=== PATIENT | female | born 1950 | race Caucasian/White ===

== ENCOUNTER 2023-01-26 11:32 | Inpatient (IN) ==
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
--- NOTE | 2023-01-26 12:23 | XRay Report ---
INDICATION: weakness TECHNIQUE: AP portable semiupright chest x-ray COMPARISON: Previous examinations dated 01/16/2023, 12/16/2022, 12/09/2022 FINDINGS: Lungs:Bilateral, predominantly bibasilar pulmonary parenchymal infiltrates. Findings may be due to benign volume loss but pneumonia is possible. Clinical correlation and follow-up radiographs recommended Heart, vascular:No significant cardiomegaly. Pulmonary vascularity is normal. No pulmonary edema or pulmonary congestion Mediastinum, mode:No mediastinal widening. No hilar mass Pleura:No pleural fluid. No pleural-based mass or calcification Skeletal:Previous thoracolumbar spinal fusion. There are spinal cord stimulator leads in the mid thoracic spine. Previous anterior and posterior cervical spinal fusion. Previous right shoulder rotator cuff repair and Beth procedure. There is superior decentering of the right humeral head consistent with recurrent rotator cuff tear IMPRESSION: 1. Bilateral, bibasilar pulmonary parenchymal infiltrates consistent with pneumonia 2. Multiple orthopedic procedures Interpreted and Authenticated by: Dimitry Jamison 01/26/23
[2023-01-26 13:27] LABS: Basophils # (Auto) 0.05 K/mcL (0.00-0.30); Basophils % (Auto) 0.4 % (0.0-2.0); Eosinophils # (Auto) 0.26 K/mcL (0.00-0.70); Eosinophils % (Auto) 2.1 % (0.0-7.0); Hematocrit 39.2 % (34.1-44.9); Hemoglobin 12.5 g/dL (11.2-15.7); Lymphocytes # (Auto) 1.49 K/mcL (1.50-4.80); Lymphocytes % (Auto) 11.8 % (15.5-49.0); Mean Cell Volume 84.5 fL (80.0-100.0); Mean Corpuscular HGB Conc 31.9 g/dL (31.0-36.0); Mean Platelet Volume 10.9 fL (8.8-12.5); Monocytes # (Auto) 1.11 K/mcL (0.10-0.90); Monocytes % (Auto) 8.8 % (1.0-12.0); Neutrophils % (Auto) 76.4 % (38.0-78.0); Platelet Count 233 K/mcL (140-440); RBC 4.64 M/mcL (3.59-5.38); Red Cell Distribution Width 15.6 % (11.5-14.5); WBC 12.6 K/mcL (4.5-11.0)
[2023-01-26 13:30] LABS: Appearance,Urine HAZY (Clear); Bilirubin,Urine Negative (Negative); Color,Urine YELLOW; Culture Indicated,Urine No; Glucose,Urine (UA) Negative (Negative); Ketones,Urine 5 mg/dL (Negative); Leukocyte Esterase,Urine 25 /uL (Negative); Mucus,Urine FEW /hpf; Nitrate,Urine Negative (Negative); Protein,Urine 30 mg/dL (Negative); Specific Gravity,Urine 1.017 (1.000-1.035); Urine Blood Negative (Negative); Urine Hyaline Cast 13 /lph (0-2); Urine RBC < 1 /hpf (0-3); Urine Squamous Epithelial Cell 3 /hpf (0-4); Urine Transitional Epi Cells < 1 /hpf (0-2); Urine WBC 4 /hpf (0-4); Urobilinogen,Urine Negative
[2023-01-26 13:47] LABS: ALT/SGPT 39 U/L (<40); AST/SGOT 26 U/L (<32); Albumin 3.8 gm/dL (3.2-5.2); Albumin/Globulin Ratio 1.1 (1.0-2.3); Alkaline Phosphatase 89 U/L (39-117); Bilirubin,Total 0.5 mg/dL (0.1-1.0); Blood Urea Nitrogen 32 mg/dL (8-23); Calcium 9.5 mg/dL (8.6-10.4); Carbon Dioxide 23 mmol/L (22-30); Chloride 100 mmol/L (96-108); Globulin 3.5 gm/dL (2.2-3.7); Glomerular Filtration Rate 34; Glucose 155 mg/dL (70-105)
[2023-01-26] MEDS ORDERED: AZITHROMYCIN 500 MG in DEXTROSE 5% IN WATER 250 ML IV ONE (14:12)
[2023-01-26] MEDS ORDERED: CEFEPIME 2 GM VIAL IV ONE (14:12)
[2023-01-26] MEDS ORDERED: 0.9 % SODIUM CHLORIDE 1,000 ML IV ONE (14:12)
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
[2023-01-26] MEDS ORDERED: POTASSIUM CHLORIDE 40 MEQ in DEXTROSE 5% IN WATER 500 ML IV PRN (17:08)
[2023-01-26] MEDS ORDERED: MAGNESIUM SULFATE 2 GM/50 ML BAG IV PRN (17:08)
[2023-01-26] MEDS ORDERED: DEXTROSE 31 GM ORAL.SUSP PO PRN (17:08)
[2023-01-26] MEDS ORDERED: POLYETHYLENE GLYCOL 3350 17 GM PACKET PO PRN (17:08)
[2023-01-26] MEDS ORDERED: POTASSIUM CHLORIDE 20 MEQ TABLET PO PRN ×2 (17:08)
[2023-01-26] MEDS ORDERED: CEFEPIME 2 GM VIAL IV SCH (17:08)
[2023-01-26] MEDS ORDERED: DEXTROSE 50% 50 ML VIAL IV PRN (17:08)
[2023-01-26] MEDS ORDERED: ONDANSETRON 4 MG/2 ML VIAL IV PRN (17:08)
[2023-01-26] MEDS ORDERED: ACETAMINOPHEN 325 MG TABLET PO PRN (17:08)
[2023-01-26] MEDS ORDERED: SENNOSIDES 1 TABLET PO PRN (17:08)
[2023-01-26] MEDS ORDERED: AZITHROMYCIN 500 MG in DEXTROSE 5% IN WATER 250 ML IV SCH (17:08)
[2023-01-26] MEDS: 0.9 % SODIUM CHLORIDE 1,000 ML IV SCH (17:37)
[2023-01-26] MEDS: IPRATROPIUM/ALBUTEROL 3 ML AMPUL.NEB NEB SCH (18:25)
[2023-01-26] MEDS: BUDESONIDE 0.5 MG/2 ML AMPUL.NEB NEB SCH ×2 (18:25→19:52)
[2023-01-26] MEDS ORDERED: INSULIN LISPRO 1 UNIT/0.01 ML UNIT SQ ONE (18:50)
[2023-01-26] MEDS: INSULIN LISPRO 1 UNIT/0.01 ML UNIT SQ SCH ×2 (18:50→21:36)
[2023-01-26] MEDS: 0.9 % SODIUM CHLORIDE 10 ML SYRINGE IV SCH (21:36)
[2023-01-26] MEDS: DOCUSATE SODIUM 100 MG CAPSULE PO SCH (21:46)
[2023-01-26] MEDS: CEFEPIME 2 GM VIAL IV SCH (21:49)
[2023-01-27] MEDS: 0.9 % SODIUM CHLORIDE 10 ML SYRINGE IV SCH ×3 (05:11→21:13)
[2023-01-27] MEDS: IPRATROPIUM/ALBUTEROL 3 ML AMPUL.NEB NEB SCH ×4 (05:11→19:36)
[2023-01-27 06:59] LABS: Basophils # (Auto) 0.06 K/mcL (0.00-0.30); Basophils % (Auto) 0.7 % (0.0-2.0); Eosinophils # (Auto) 0.37 K/mcL (0.00-0.70); Eosinophils % (Auto) 4.2 % (0.0-7.0); Hematocrit 35.6 % (34.1-44.9); Mean Cell Volume 85.6 fL (80.0-100.0); Mean Corpuscular HGB Conc 30.9 g/dL (31.0-36.0); Mean Platelet Volume 10.5 fL (8.8-12.5); Monocytes # (Auto) 1.04 K/mcL (0.10-0.90); Monocytes % (Auto) 11.9 % (1.0-12.0); Neutrophils % (Auto) 66.9 % (38.0-78.0); Platelet Count 193 K/mcL (140-440); RBC 4.16 M/mcL (3.59-5.38); Red Cell Distribution Width 15.6 % (11.5-14.5); WBC 8.8 K/mcL (4.5-11.0)
[2023-01-27] MEDS ORDERED: NITROGLYCERIN 0.4 MG TAB.SUBL SL PRN (07:31)
[2023-01-27] MEDS: BUDESONIDE 0.5 MG/2 ML AMPUL.NEB NEB SCH ×2 (07:32→19:37)
--- NOTE | 2023-01-27 07:34 | Internal Med Progress Note ---
SUBJECTIVE Subjective Patient information: Note initiated : 01/27/23 at 7:28 am Service Date, if different from initiated Date: [] Patient: Trena Gaming a 72 y/o F admitted on 01/26/23 for Fever, increased oxygen, altered mental status. Chief Complaint: [] Interval history: History of present illness: Ms. Gaming is a 72 year old F Patient presents from her custodial for decreased level of consciousness and decreased oxygen saturations. She does have a history of chronic bronchitis as well as central sleep apnea and follows with pulmonology. She is on a 4 to 5 L of oxygen day and night. She has been in a custodial lately because her had a surgery recently - She has advanced Alzheimer's dementia. History is obtained from the family as patient is verbally unresponsive. The custodial center and because of decreased level of consciousness as well as hypoxia although I am not sure what level of oxygen support she was on, whether or not she was on her 4 L or less. As far as her baseline level of mentation patient has good days where she is animated and able to carry on a conversation with some assistance and other days where she is less. She ambulates with a walker. Per family she has had increasing cough lately. She was recently treated for UTI. Sounds like she had pneumonia back in September as well. Family says her Alzheimer's has been progressively worsening over the past year. In the ED she was found to have bilateral pneumonia and a mild leukocytosis. Minimally responsive. Chest x-ray with bilateral bibasilar infiltrates. Antibiotics and IV fluids started in the ED. 4/3 Little bit more alert today but still poor.. Responds "no" frequently to questions. Does not really follow commands. Makes eye contact. On 6 L OxyMask this morning weaning down to 3 now. Respiratory viral panel with rhinovirus. Leukocytosis improving. Renal function improving. Hypomagnesemia. Review of Systems: Pertinent positives as above. Denies headache/fever/chills/nausea/vomiting/chest or abdominal pain/diarrhea. PHYSICAL EXAM General: awake, No acute Distress Eyes/N/T: EOMI, no scleral icterus, Head/Neck: neck supple, full ROM, CV: RRR, No murmurs, Pulm: Decreased BS b/l and mild bibase rhonchi/rales, no wheezing, no respiratory distress Abd: soft, nontender, +BS x4 Ext: no clubbing/cyanosis/edema, nontender Neuro: more alert today, doesn't follow commands, makes eye contact, spontaneously moves extremities Psychiatric: Skin: warm/dry, normal color Constitutional Vitals: Vital Signs Temp Pulse Resp BP Pulse Ox O2 Del Method O2 Flow Rate 98.8 F 83 16 119/61 97 Oxymask 6 01/27/23 03:20 01/27/23 03:20 01/27/23 03:20 01/27/23 03:20 01/27/23 03:20 01/27/23 03:20 01/27/23 03:20 Period Temp Pulse Resp BP Sys/Quiros Pulse Ox O2 Del Method O2 Flow Rate Last 24 Hr 98.3 F-99.3 F 56-112 10-30 102-139/47-86 84-98 Oxymask-Room Air 6-6 Intake and Output 01/26/23 01/27/23 01/27/23 19:59 03:59 11:59 Intake Total 1250 0 Output Total 3 Balance 1250 -3 Weight 105.052 kg 105.778 kg Intake & Output: Intake & Output 01/26/23 01/27/23 01/27/23 19:59 03:59 11:59 Intake Total 1250 0 Output Total 3 Balance 1250 -3 Weight 105.052 kg 105.778 kg Intake: IV 1250 Sodium Chloride 0.9% 1,000 ml @ 1000 Wide Open IV BOLUS ONE Rx#: [id number] Zithromax 500 mg In Dextrose 5% 250 in Water 250 ml @ 250 mls/hr IV ONCE ONE Rx#:[id number] Oral 0 Output: # of times incontinent of urine 3 OBJ DATA Labs 01/27/23 05:41 01/27/23 05:41 Labs: Abnormal Lab Results 01/27/23 01/26/23 01/26/23 05:41 12:46 12:30 WBC Hgb 11.0 L MCHC 30.9 L RDW 15.6 H Lymph % (Auto) Lymph # (Auto) 1.40 L [place] # (Auto) 1.04 H Immature Gran # Absolute Neutrophils BUN Creatinine Glucose C-Reactive Protein 2.40 H Urine Appearance Hazy A Urine Protein 30 A Urine Ketones 5 A Ur Leukocyte Esterase 25 A Hyaline Casts 13 H Urine Mucus Few A 01/26/23 01/26/23 12:30 12:30 WBC 12.6 H Hgb MCHC RDW 15.6 H Lymph % (Auto) 11.8 L Lymph # (Auto) 1.49 L [place] # (Auto) 1.11 H Immature Gran # 0.06 H Absolute Neutrophils 9.67 H BUN 32 H Creatinine 1.5 H Glucose 155 H C-Reactive Protein Urine Appearance Urine Protein Urine Ketones Ur Leukocyte Esterase Hyaline Casts Urine Mucus Meds: Medications Acetaminophen (Acetaminophen 325 Mg Tablet) 650 mg PO Q6HP PRN; Protocol PRN Reason: Per Pain Protocol/Fever > 101 Albuterol/Ipratropium (Ipratropium/Albuterol 3 Ml Ampul.Neb) 3 ml NEB Q6HRT [facility] Last Admin: 01/27/23 05:11 Dose: Not Given Budesonide (Budesonide 0.5 Mg/2 Ml Ampul.Neb) 0.5 mg NEB Q12 [facility] Last Admin: 01/26/23 19:52 Dose: Not Given Cefepime HCl (Cefepime 2 Gm Vial) 2 gm IV Q12H [facility]; Protocol Last Admin: 01/26/23 21:49 Dose: 2 gm Dextrose (Dextrose 50% 50 Ml Vial) 0 ml IV UD PRN PRN Reason: Per Sliding Scale Diagnostic Test (Pha) (Accu-Chek 1 Each Strip) 1 each FS ACHS [facility] Last Admin: 01/26/23 21:36 Dose: 1 each Docusate Sodium (Docusate Sodium 100 Mg Capsule) 100 mg PO BID [facility] Last Admin: 01/26/23 21:46 Dose: 100 mg Enoxaparin Sodium (Enoxaparin 40 Mg/0.4 Ml Syringe) 40 mg SQ DAILY [facility] Glucose (Dextrose 31 Gm Oral.Susp) 15 gm PO PRN PRN PRN Reason: Hypoglycemia Potassium Chloride 40 meq/ (Dextrose) 520 mls @ 130 mls/hr IV UD PRN PRN Reason: Potassium < 3 Magnesium Sulfate (Magnesium Sulfate) 2 gm in 50 mls @ 50 mls/hr IV UD PRN PRN Reason: Magnesium </= 1.6 Sodium Chloride (Sodium Chloride 0.9%) 1,000 mls @ 75 mls/hr IV .[id number] [facility] Stop: 01/27/23 19:47 Last Admin: 01/26/23 17:37 Dose: 75 mls/hr Azithromycin 500 mg/ Dextrose 250 mls @ 250 mls/hr IV Q24H [facility]; Protocol Stop: 01/28/23 09:59 Insulin Human Lispro (Insulin Lispro 1 Unit/0.01 Ml Unit) 0 unit SQ ACHS [facility]; Protocol Last Admin: 01/26/23 21:36 Dose: Not Given Ondansetron HCl (Ondansetron 4 Mg/2 Ml Vial) 4 mg IV Q4HP PRN PRN Reason: Nausea And Vomiting Polyethylene Glycol (Polyethylene Glycol 3350 17 Gm Packet) 17 gm PO DAILYP PRN PRN Reason: Constipation Potassium Chloride (Potassium Chloride 20 Meq Tablet) 40 meq PO UD PRN PRN Reason: Potssium is 3-3.5 Potassium Chloride (Potassium Chloride 20 Meq Tablet) 40 meq PO UD PRN PRN Reason: Potassium < 3 Senna (Sennosides 1 Tablet) 2 tab PO DAILYP PRN PRN Reason: Constipation Sodium Chloride (0.9 % Sodium Chloride 10 Ml Syringe) 10 ml IV Q8 [facility] Last Admin: 01/27/23 05:11 Dose: Not Given A/P Narrative A/P Narrative: A: *PNA, b/l: concern for aspiration -RVP positive for rhinovirus. flu/covid/strep neg *Sepsis: 2/2 above -leukocytosis improving *Acute on chornic hypoxic respiratory failure: -on 6L oxymask *Encephalopathy: 2/2 above, mildly improved *COPD(on 4-5L@home) *Central Sleep Apnea: cpap *Advanced Alzheimer's Dementia: *SYDNEE on CKD IIIb: *DM2: *HTN/HLD: *Chronic pain: *Obesity: BMI 37 *GERD: *Generalized weakness/deconditioning: P: -Cefepime/azithromycin, pending BC/SC -IS/Acapella/home cpt vest, RT, nebs, cont home IH's -wean o2 as able -home cpap - eval -IVF -f/u renal fxn, monitor uop & i/o -hold ARB for sydnee -basal(decreased for poor po intake) and ssi -PT/OT -CM for placement -ppx: lovenox / home ppi Time Spent With Patient Time: Total time spent is greater than 50% in coordination of care (as documented) at patient's floor/unit and/or counseling patient: Subsequent: Total time with patient: 50 - 65 Minutes QUALITY Stroke Symptom Onset Unknown: No VTE Deep Vein Thrombosis/Pulmonary Embolism Present on Admission: No
[2023-01-27 08:10] LABS: ALT/SGPT 33 U/L (<40); AST/SGOT 24 U/L (<32); Albumin 3.1 gm/dL (3.2-5.2); Alkaline Phosphatase 74 U/L (39-117); Bilirubin,Direct < 0.2 mg/dL (0-0.3); Bilirubin,Total 0.7 mg/dL (0.1-1.0); Blood Urea Nitrogen 24 mg/dL (8-23); Calcium 8.8 mg/dL (8.6-10.4); Carbon Dioxide 24 mmol/L (22-30); Chloride 106 mmol/L (96-108); Globulin 3.1 gm/dL (2.2-3.7); Glomerular Filtration Rate 56; Glucose 143 mg/dL (70-105); Lactate Dehydrogenase 181 U/L (135-225); Phosphorous 2.6 mg/dL (2.5-4.5); Triglycerides 203 mg/dL (<150)
[2023-01-27] MEDS: 0.9 % SODIUM CHLORIDE 1,000 ML IV SCH (08:10)
[2023-01-27] MEDS: ENOXAPARIN 40 MG/0.4 ML SYRINGE SQ SCH (08:21)
[2023-01-27] MEDS: PREGABALIN 150 MG CAPSULE PO SCH ×3 (08:22→21:13)
[2023-01-27] MEDS: DOCUSATE SODIUM 100 MG CAPSULE PO SCH ×2 (08:22→21:13)
[2023-01-27] MEDS: INSULIN LISPRO 1 UNIT/0.01 ML UNIT SQ SCH ×5 (08:22→21:12)
[2023-01-27] MEDS: OMEPRAZOLE 20 MG CAPSULE PO SCH ×2 (08:23→09:31)
[2023-01-27] MEDS: CEFEPIME 2 GM VIAL IV SCH ×2 (08:28→21:13)
[2023-01-27] MEDS: TIMOLOL 0.5% OPHTH DROPS BOTTLE 5ML OU SCH (08:36)
[2023-01-27] MEDS: AZITHROMYCIN 500 MG in DEXTROSE 5% IN WATER 250 ML IV SCH (08:36)
--- NOTE | 2023-01-27 09:28 | EKG ---
[facility] Test Date: 2023-01-26 Pat Name: Trena Gaming Department: ED Room: Gender: Female Project Management Specialist: ROSITA : 1950 Requested By: Eryn Loyola Order Number: [id number] Reading MD: Dimitry Wolfe M.D. Measurements Intervals [place] Rate: 107 P: 25 OR: 195 QRS: 21 QRSD: 96 T: -2 QT: 359 QTc: 478 Interpretive Statements Sinus tachycardia Borderline T abnormalities, diffuse leads Electronically Signed On 01-27-2023 9:28:37 PDT by Dimitry Wolfe M.D. /store/[email or web address]/[id number]
[2023-01-27] MEDS ORDERED: OLANZapine 10 MG VIAL IM ONE (16:00)
[2023-01-27] MEDS ORDERED: NON FORMULARY MEDICATION 1 DOSE MISCELL (Methadone 10 mg tablet) PO SCH (21:00)
[2023-01-27] MEDS: INSULIN GLARGINE, HUMAN 1 UNIT/0.01 ML SQ SCH (21:12)
[2023-01-27] MEDS: LATANOPROST OPHTH DROPS 2.5ML BOTTLE OU SCH (21:13)
[2023-01-27] MEDS: SIMVASTATIN 40 MG TABLET PO SCH (21:13)
[2023-01-27] MEDS: DULoxetine 30 MG CAPSULE PO SCH (21:13)
[2023-01-27] MEDS: risperiDONE 1 MG TABLET PO SCH (21:13)
[2023-01-28] MEDS: IPRATROPIUM/ALBUTEROL 3 ML AMPUL.NEB NEB SCH ×2 (00:21→07:52)
[2023-01-28] MEDS: 0.9 % SODIUM CHLORIDE 10 ML SYRINGE IV SCH ×3 (06:48→20:42)
[2023-01-28 07:13] LABS: ALT/SGPT 46 U/L (<40); AST/SGOT 36 U/L (<32); Albumin 3.4 gm/dL (3.2-5.2); Albumin/Globulin Ratio 0.9 (1.0-2.3); Alkaline Phosphatase 82 U/L (39-117); Bilirubin,Direct < 0.2 mg/dL (0-0.3); Bilirubin,Total 0.8 mg/dL (0.1-1.0); Blood Urea Nitrogen 14 mg/dL (8-23); Calcium 9.4 mg/dL (8.6-10.4); Carbon Dioxide 26 mmol/L (22-30); Chloride 101 mmol/L (96-108); Globulin 3.7 gm/dL (2.2-3.7); Glomerular Filtration Rate 86; Glucose 165 mg/dL (70-105); Lactate Dehydrogenase 237 U/L (135-225); Phosphorous 1.5 mg/dL (2.5-4.5); Triglycerides 208 mg/dL (<150)
--- NOTE | 2023-01-28 07:42 | Internal Med Progress Note ---
SUBJECTIVE Subjective Patient information: Note initiated : 01/28/23 at 7:40 am Service Date, if different from initiated Date: [] Patient: Trena Gaming a 72 y/o F admitted on 01/26/23 for Fever, increased oxygen, altered mental status. Chief Complaint: [] Interval history: History of present illness: Ms. Gaming is a 72 year old F Patient presents from her [facility] for decreased level of consciousness and decreased oxygen saturations. She does have a history of chronic bronchitis as well as central sleep apnea and follows with pulmonology. She is on a 4 to 5 L of oxygen day and night. She has been in a mcc lately because her had a surgery recently - She has advanced Alzheimer's dementia. History is obtained from the family as patient is verbally unresponsive. The [facility] center and because of decreased level of consciousness as well as hypoxia although I am not sure what level of oxygen support she was on, whether or not she was on her 4 L or less. As far as her baseline level of mentation patient has good days where she is animated and able to carry on a conversation with some assistance and other days where she is less. She ambulates with a walker. Per family she has had increasing cough lately. She was recently treated for UTI. Sounds like she had pneumonia back in September as well. Family says her Alzheimer's has been progressively worsening over the past year. In the ED she was found to have bilateral pneumonia and a mild leukocytosis. Minimally responsive. Chest x-ray with bilateral bibasilar infiltrates. Antibiotics and IV fluids started in the ED. 4/3 Little bit more alert today but still poor.. Responds "no" frequently to questions. Does not really follow commands. Makes eye contact. On 6 L OxyMask this morning weaning down to 3 now. Respiratory viral panel with rhinovirus. Leukocytosis improving. Renal function improving. Hypomagnesemia. 4/4 Patient became agitated and impulsive yesterday evening. Finally calm down. Refusing medications this morning. Patient on several liters of oxygen. Renal function improved. Phos low. Review of Systems: Pertinent positives as above. Denies headache/fever/chills/nausea/vomiting/chest or abdominal pain/diarrhea. PHYSICAL EXAM General: awake, No acute Distress Eyes/N/T: EOMI, no scleral icterus, Head/Neck: neck supple, full ROM, CV: RRR, No murmurs, Pulm: Decreased BS b/l and mild bibase rhonchi/rales clear anteriorly, no wheezing, no respiratory distress Abd: soft, nontender, +BS x4 Ext: no clubbing/cyanosis/edema, nontender Neuro: more alert today, doesn't follow commands, makes eye contact, sponta neously moves extremities Psychiatric: Skin: warm/dry, normal color Constitutional Vitals: Vital Signs Temp Pulse Resp BP Pulse Ox O2 Del Method O2 Flow Rate 98.3 F 80 16 160/84 94 Nasal Cannula 4 01/28/23 04:00 01/28/23 04:00 01/28/23 04:00 01/28/23 04:00 01/28/23 04:00 01/28/23 04:00 01/28/23 04:00 Period Temp Pulse Resp BP Sys/Quiros Pulse Ox O2 Del Method O2 Flow Rate Last 24 Hr 97.6 F-99.0 F 75-96 12-18 128-164/75-94 93-99 Nasal Cannula- Room Air 3-6 Intake and Output 01/27/23 01/28/23 01/28/23 19:59 03:59 11:59 Intake Total 50 1000 Output Total 1 500 Balance 50 999 -500 Weight 104.825 kg Intake & Output: Intake & Output 01/27/23 01/28/23 01/28/23 19:59 03:59 11:59 Intake Total 50 1000 Output Total 1 500 Balance 50 999 -500 Weight 104.825 kg Intake: IV 50 1000 Sodium Chloride 0.9% 1,000 ml @ 1000 75 mls/hr IV .[id number] [facility] Rx#: [id number] Output: Void Amount 500 # of times incontinent of urine 1 Other: Meal Lunch Percent of Meal Consumed 25% Feeding Ability Needs Supervision Urine Appearance Clear Urine Color Yellow Stool Size Large Stool Color Brown Stool Consistency Soft # of times incontinent of 1 Bowels OBJ DATA Labs 01/27/23 05:41 01/28/23 05:51 Labs: Abnormal Lab Results 01/28/23 01/27/23 01/27/23 05:51 05:41 05:41 WBC Hgb 11.0 L MCHC 30.9 L RDW 15.6 H Lymph % (Auto) Lymph # (Auto) 1.40 L Kerr # (Auto) 1.04 H Immature Gran # Absolute Neutrophils BUN 24 H Creatinine Glucose 165 H 143 H Phosphorus 1.5 L Magnesium 1.5 L AST 36 H ALT 46 H Lactate Dehydrogenase 237 H C-Reactive Protein Albumin 3.1 L Albumin/Globulin Ratio 0.9 L Triglycerides 208 H 203 H Urine Appearance Urine Protein Urine Ketones Ur Leukocyte Esterase Hyaline Casts Urine Mucus 01/26/23 01/26/23 01/26/23 12:46 12:30 12:30 WBC Hgb MCHC RDW Lymph % (Auto) Lymph # (Auto) Kerr # (Auto) Immature Gran # Absolute Neutrophils BUN 32 H Creatinine 1.5 H Glucose 155 H Phosphorus Magnesium AST ALT Lactate Dehydrogenase C-Reactive Protein 2.40 H Albumin Albumin/Globulin Ratio Triglycerides Urine Appearance Hazy A Urine Protein 30 A Urine Ketones 5 A Ur Leukocyte Esterase 25 A Hyaline Casts 13 H Urine Mucus Few A 01/26/23 12:30 WBC 12.6 H Hgb MCHC RDW 15.6 H Lymph % (Auto) 11.8 L Lymph # (Auto) 1.49 L Kerr # (Auto) 1.11 H Immature Gran # 0.06 H Absolute Neutrophils 9.67 H BUN Creatinine Glucose Phosphorus Magnesium AST ALT Lactate Dehydrogenase C-Reactive Protein Albumin Albumin/Globulin Ratio Triglycerides Urine Appearance Urine Protein Urine Ketones Ur Leukocyte Esterase Hyaline Casts Urine Mucus Meds: Medications Acetaminophen (Acetaminophen 325 Mg Tablet) 650 mg PO Q6HP PRN; Protocol PRN Reason: Per Pain Protocol/Fever > 101 Albuterol/Ipratropium (Ipratropium/Albuterol 3 Ml Ampul.Neb) 3 ml NEB Q6HRT [facility] Last Admin: 01/28/23 00:21 Dose: Not Given Budesonide (Budesonide 0.5 Mg/2 Ml Ampul.Neb) 0.5 mg NEB Q12 [facility]ARA Last Admin: 01/27/23 19:37 Dose: 0.5 mg Cefepime HCl (Cefepime 2 Gm Vial) 2 gm IV Q12H [facility]ARA; Protocol Last Admin: 01/27/23 21:13 Dose: 2 gm Dextrose (Dextrose 50% 50 Ml Vial) 0 ml IV UD PRN PRN Reason: Per Sliding Scale Diagnostic Test (Pha) (Accu-Chek 1 Each Strip) 1 each FS ACHS [facility] Last Admin: 01/27/23 21:12 Dose: 1 each Docusate Sodium (Docusate Sodium 100 Mg Capsule) 100 mg PO BID [facility] Last Admin: 01/27/23 21:13 Dose: Not Given Duloxetine HCl (Duloxetine 30 Mg Capsule) 90 mg PO QHS [facility] Last Admin: 01/27/23 21:13 Dose: Not Given Enoxaparin Sodium (Enoxaparin 40 Mg/0.4 Ml Syringe) 40 mg SQ DAILY [facility] Last Admin: 01/27/23 08:21 Dose: 40 mg Glucose (Dextrose 31 Gm Oral.Susp) 15 gm PO PRN PRN PRN Reason: Hypoglycemia Potassium Chloride 40 meq/ (Dextrose) 520 mls @ 130 mls/hr IV UD PRN PRN Reason: Potassium < 3 Magnesium Sulfate (Magnesium Sulfate) 2 gm in 50 mls @ 50 mls/hr IV UD PRN PRN Reason: Magnesium </= 1.6 Last Infusion: 01/27/23 14:37 Dose: Infused Azithromycin 500 mg/ Dextrose 250 mls @ 250 mls/hr IV Q24H [facility]; Protocol Stop: 01/28/23 09:59 Last Infusion: 01/27/23 11:26 Dose: Infused Insulin Glargine (Insulin Glargine, Human 1 Unit/0.01 Ml) 20 unit SQ [facility] Last Admin: 01/27/23 21:12 Dose: 20 unit Insulin Human Lispro (Insulin Lispro 1 Unit/0.01 Ml Unit) 0 unit SQ [facility]; Protocol Last Admin: 01/27/23 21:12 Dose: 4 units Latanoprost (Latanoprost Ophth Drops 2.5ml Bottle) 1 gtt OU QPM [facility] Last Admin: 01/27/23 21:13 Dose: Not Given Nitroglycerin (Nitroglycerin 0.4 Mg Tab.Subl) 0.4 mg SL Q5M PRN PRN Reason: Chest Pain Omeprazole (Omeprazole 20 Mg Capsule) 40 mg PO ACB [facility] Last Admin: 01/27/23 09:31 Dose: Not Given Ondansetron HCl (Ondansetron 4 Mg/2 Ml Vial) 4 mg IV Q4HP PRN PRN Reason: Nausea And Vomiting Polyethylene Glycol (Polyethylene Glycol 3350 17 Gm Packet) 17 gm PO DAILYP PRN PRN Reason: Constipation Potassium Chloride (Potassium Chloride 20 Meq Tablet) 40 meq PO UD PRN PRN Reason: Potssium is 3-3.5 Potassium Chloride (Potassium Chloride 20 Meq Tablet) 40 meq PO UD PRN PRN Reason: Potassium < 3 Pregabalin (Pregabalin 150 Mg Capsule) 150 mg PO BID [facility] Last Admin: 01/27/23 21:13 Dose: Not Given Risperidone (Risperidone 1 Mg Tablet) 1 mg PO QHS [facility] Last Admin: 01/27/23 21:13 Dose: Not Given Senna (Sennosides 1 Tablet) 2 tab PO DAILYP PRN PRN Reason: Constipation Simvastatin (Simvastatin 40 Mg Tablet) 40 mg PO QHS [facility] Last Admin: 01/27/23 21:13 Dose: Not Given Sodium Chloride (0.9 % Sodium Chloride 10 Ml Syringe) 10 ml IV Q8 [facility] Last Admin: 01/28/23 06:48 Dose: Not Given Timolol Maleate (Timolol 0.5% Ophth Drops Bottle 5ml) 1 gtt OU QDAY [facility] Last Admin: 01/27/23 08:36 Dose: Not Given A/P Narrative A/P Narrative: A: *PNA, b/l: concern for aspiration -RVP positive for rhinovirus. flu/covid/strep neg *Sepsis: 2/2 above -leukocytosis improved *Acute on chornic hypoxic respiratory failure: -down to 2-4L NC *Encephalopathy, acute on chronic: 2/2 above, mildly improved *Advanced Alzheimer's Dementia: *Hypomagnesemia/hypophosphatemia: *COPD(on 4-5L@home) *Central Sleep Apnea: cpap *SYDNEE on CKD IIIb: improved *DM2: *HTN/HLD: *Chronic pain: *Obesity: BMI 37 *GERD: *Generalized weakness/deconditioning: P: -Cefepime/azithromycin, pending BC/SC -IS/Acapella/home cpt vest, RT, nebs, cont home IH's -wean o2 as able -home cpap -ST eval -IVF d/c -Monitor electrolytes and replace. -f/u renal fxn, monitor uop & i/o -hold ARB for sydnee -basal(decreased for poor po intake) and ssi -PT/OT -CM for placement -ppx: lovenox / home ppi Time Spent With Patient Time: Total time spent is greater than 50% in coordination of care (as documented) at patient's floor/unit and/or counseling patient: Subsequent: Total time with patient: 50 - 65 Minutes QUALITY Stroke Symptom Onset Unknown: No VTE Deep Vein Thrombosis/Pulmonary Embolism Present on Admission: No
[2023-01-28] MEDS: BUDESONIDE 0.5 MG/2 ML AMPUL.NEB NEB SCH (07:53)
[2023-01-28] MEDS: INSULIN LISPRO 1 UNIT/0.01 ML UNIT SQ SCH ×4 (08:22→20:54)
[2023-01-28] MEDS: CEFEPIME 2 GM VIAL IV SCH ×2 (08:22→20:42)
[2023-01-28] MEDS: ENOXAPARIN 40 MG/0.4 ML SYRINGE SQ SCH (08:23)
[2023-01-28] MEDS: AZITHROMYCIN 500 MG in DEXTROSE 5% IN WATER 250 ML IV SCH (08:23)
[2023-01-28] MEDS ORDERED: MAGNESIUM SULFATE 8.12 MEQ in DEXTROSE 5% IN WATER 50 ML IV ONE (09:25)
[2023-01-28] MEDS ORDERED: IPRATROPIUM/ALBUTEROL 3 ML AMPUL.NEB NEB PRN (09:56)
--- NOTE | 2023-01-28 11:36 | Discharge Summary ---
Discharge Provider Provider IMPORTANT FOLLOW-UP INFORMATION FOR PCP: Patient information: Note initiated : 01/28/23 at 11:34 am Service Date, if different from initiated Date: [] Patient: Trena Gaming a 72 y/o F admitted on 01/26/23 for Fever, increased oxygen, altered mental status. Chief Complaint: [] Date of admission: 01/26/23 16:59 Discharge date: 01/30/23 Primary care physician: Jigar Salinas MD Consults: 01/26/23 Consult to Physician [CONS] Stat Comment: Consulting Provider: Maynor Grossman Reason For Exam: Physician to Consult 01/28/23 08:25 Consult to Physician [CONS] Routine Comment: snf referral Consulting Provider: [facility] Reason For Exam: Physician to Consult 01/28/23 10:43 Consult to Physician [CONS] Routine Comment: Consulting Provider: [facility] Reason For Exam: Physician to Consult COURSE Hospital Course Hospital course: History of present illness: Ms. Gaming is a 72 year old F Patient presents from her correction for decreased level of consciousness and decreased oxygen saturations. She does have a history of chronic bronchitis as well as central sleep apnea and follows with pulmonology. She is on a 4 to 5 L of oxygen day and night. She has been in a correction lately because her had a surgery recently - She has advanced Alzheimer's dementia. History is obtained from the family as patient is verbally unresponsive. The correction center and because of decreased level of consciousness as well as hypoxia although I am not sure what level of oxygen support she was on, whether or not she was on her 4 L or less. As far as her baseline level of mentation patient has good days where she is animated and able to carry on a conversation with some assistance and other days where she is less. She ambulates with a walker. Per family she has had increasing cough lately. She was recently treated for UTI. Sounds like she had pneumonia back in September as well. Family says her Alzheimer's has been progressively worsening over the past year. In the ED she was found to have bilateral pneumonia and a mild leukocytosis. Minimally responsive. Chest x-ray with bilateral bibasilar infiltrates. Antibiotics and IV fluids started in the ED. 4/3 Little bit more alert today but still poor.. Responds "no" frequently to questions. Does not really follow commands. Makes eye contact. On 6 L OxyMask this morning weaning down to 3 now. Respiratory viral panel with rhinovirus. Leukocytosis improving. Renal function improving. Hypomagnesemia. 01/28 Patient became agitated and impulsive yesterday evening. Finally calm down. Refusing medications this morning. Patient on several liters of oxygen. Renal function improved. Phos low. 5 More alert and communicative today. Patient does answer yes to some questions. Follows commands. Feels better today. Seen by telemetry psych yesterday. 01/30 No overnight event or new complaints. Patient seems to be doing pretty well this morning she has occasional headache and mild cough. Speech therapy eval pending. Given comorbidities specifically advanced dementia patient high risk for readmission A: *PNA, b/l: concern for aspiration -RVP positive for rhinovirus. flu/covid/strep neg *Sepsis: 2/2 above *Acute on chornic hypoxic respiratory failure: *Encephalopathy, acute on chronic: 2/2 above, mildly improved *Advanced Alzheimer's Dementia: *Hypomagnesemia/hypophosphatemia: *COPD(on 4-5L@home) *Central Sleep Apnea: cpap *SYDNEE on CKD IIIb: improved *DM2: *HTN/HLD: *Chronic pain: *Obesity: BMI 37 *GERD: *Generalized weakness/deconditioning: P: -Abx -ST eval -Per telepsych >stop Risperidone -For SNF facility>>Start home Lantus at 20 units nightly and titrate back up to home dose of 80 nightly as needed. Discharge diagnosis: Pneumonia concern for aspiration. Sepsis acute on chronic hypoxic respite Secondary discharge diagnosis: Encephalopathy advanced Alzheimer's dementia electrolyte dispense imbalance COPD Central sleep apnea acute on chronic kidney disease diabetes hypertension chronic pain obesity GERD generalized weakness Time Spent with Patient Time attestation: Total time spent providing and/or coordinating discharge services: Time spent: Greater than 30 minutes EXAM Constitutional Vitals: Temp Pulse Resp BP Pulse Ox O2 Del Method O2 Flow Rate 98.3 F 80 14 160/84 94 Nasal Cannula 2 01/28/23 04:00 01/28/23 04:00 01/28/23 08:00 01/28/23 04:00 01/28/23 04:00 01/28/23 04:00 01/28/23 07:55 Discharge Data Data Completed and Pending Labs on day of discharge: Labs from last 24 hours 01/28/23 05:51 Sodium 140 Potassium 4.3 Chloride 101 Carbon Dioxide 26 Anion Gap 13.0 BUN 14 Creatinine 0.7 GFR Calculation 86 Glucose 165 H Uric Acid 7.0 Calcium 9.4 Phosphorus 1.5 L Magnesium 1.6 Total Bilirubin 0.8 Direct Bilirubin < 0.2 GGT 27 AST 36 H ALT 46 H Alkaline Phosphatase 82 Lactate Dehydrogenase 237 H Total Protein 7.1 Albumin 3.4 Globulin 3.7 Albumin/Globulin Ratio 0.9 L Triglycerides 208 H Preliminary micro results at discharge 01/26/23 11:43 Blood Culture - Preliminary Blood 01/26/23 11:35 Blood Culture - Preliminary Blood Discharge Plan Patient/Caregiver Discharge Instructions Activity: increase activity as tolerated Diet: Consistent Carbohydrate Activity Restrictions/Additional Instructions: Start home Lantus at 20 units nightly and titrate back up to home dose of 80 nightly as needed. Prescriptions: Continued (DME) 20 inch wheel chair See Rx Instructions .Route .MEDSUPPLY Qty: 1 0RF Rx Instructions: use daily for mobility simvastatin 40 mg tablet 40 mg PO QHS Qty: 90 3RF cholecalciferol (vitamin D3) 5,000 unit capsule 5,000 unit PO DAILY L.acid-L.casei-B.bif-B.concetta-FOS 2 tab PO QAM Patient Comments: 2 capsules PO BID; Rx Instructions: 2 capsules q am; pen needle, diabetic miscellaneous latanoprost 0.005 % drops 1 drp OPHTHALMIC QPM Patient Comments: Left eye Rx Instructions: 1 gtt to left eye q.hs (DME) True Metrix Glucose Test Strip strip See Dose Instructions .ROUTE .MEDSUPPLY Qty: 10 Rx Instructions: As directed alpha lipoic acid 600 mg capsule 1,200 mg PO QHS insulin lispro protamine-lispro 100 unit/mL (75-25) subcutaneous pen 100 unit/mL (75-25) insulin pen See Rx Instructions SUB-Q QDAY Patient Comments: sliding scale (5 units + sliding scale SUB-Q QDAY; Rx Instructions: sliding scale (5 units + sliding scale SUB-Q QDAY; Lantus Solostar U-100 Insulin 100 unit/mL (3 mL) insulin pen 80 unit SUB-Q QHS folic acid 1 mg tablet 1 mg PO QDAY metformin 500 mg tablet extended release 24 hr 500 mg PO QDAY timolol 0.5 % drops 1 drp ophthalmic (eye) QDAY duloxetine 30 mg capsule,delayed release(DR/EC) 90 mg PO QHS omeprazole 40 mg capsule,delayed release(DR/EC) 40 mg PO QDAY nitroglycerin 0.4 mg tablet, sublingual 0.4 mg sublingual Q5M PRN (Reason: Chest Pain) Rx Instructions: do not exceed 3 doses per episode oxycodone 10 mg tablet 10 mg PO Q4-6HP PRN (Reason: pain) multivitamin Tablet 1 tab PO QAM loratadine [Allergy Relief (loratadine)] 10 mg tablet 10 mg PO QDAY PRN (Reason: Allergy Symptoms) (DME) ASV and supplies Qty: 1 0RF Dose Instruction: As directed Rx Instructions: ASV settings of minimum EPAP at 8cm of water pressure,maximum EPAP of 15cm of water pressure,minimum pressure support of 4cm of water pressure and maximum pressure support of 15 cm of water pressure. ascorbate calcium (vitamin C) 500 mg tablet 1,000 mg PO DAILY Rx Instructions: takes 2 "gummies" daily Ozempic 0.25 mg or 0.5 mg(2 mg/1.5 mL) pen injector 1 mg SUBCUT WEEKLY Rx Instructions: every Friday pregabalin 150 mg Capsule 150 mg PO BID losartan [Cozaar] 25 mg tablet 50 mg PO QHS Rx Instructions: decreased dose 09/24/22 urea 40 % cream 1 applic topical QDAY methadone 10 mg tablet 10 mg PO Q12H Rx Instructions: 2 tabs am, 1 tab pm, 1 tab HS Discontinued risperidone 1 mg tablet 1 mg PO QHS Qty: 30 1RF Follow Up Plan Follow up with: Jigar Salinas MD [Primary Care Provider] - Patient Disposition: Xfer SNF Prognosis: Undetermined Rehab Potential: Fair I certify that the patient requires SNF services: Yes Overall status at discharge: patient is progressing back to baseline Discharge Orders: Discharge Order (Routine); Ordered 01/30/23 Ordered By: Maynor Grossman [facility] VTE Deep Vein Thrombosis/Pulmonary Embolism Present on Admission: No
[2023-01-28] MEDS: PREGABALIN 150 MG CAPSULE PO SCH ×2 (12:10→20:54)
[2023-01-28] MEDS: OMEPRAZOLE 20 MG CAPSULE PO SCH (12:10)
[2023-01-28] MEDS: DOCUSATE SODIUM 100 MG CAPSULE PO SCH ×2 (12:10→20:37)
[2023-01-28] MEDS: TIMOLOL 0.5% OPHTH DROPS BOTTLE 5ML OU SCH (12:11)
[2023-01-28] MEDS: NEUTRA PHOS 1 PACKET PO SCH ×2 (12:32→20:55)
[2023-01-28] MEDS: PHOSPHORUS 250 MG TABLET PO SCH ×2 (12:32→20:55)
[2023-01-28] MEDS ORDERED: OLANZapine 5 MG TABLET PO PRN (16:09)
[2023-01-28] MEDS: DULoxetine 30 MG CAPSULE PO SCH (20:53)
[2023-01-28] MEDS: QUEtiapine 25 MG TABLET PO SCH (20:54)
[2023-01-28] MEDS: LATANOPROST OPHTH DROPS 2.5ML BOTTLE OU SCH (20:54)
[2023-01-28] MEDS: SIMVASTATIN 40 MG TABLET PO SCH (20:54)
[2023-01-28] MEDS: risperiDONE 1 MG TABLET PO SCH (20:54)
[2023-01-28] MEDS: INSULIN GLARGINE, HUMAN 1 UNIT/0.01 ML SQ SCH (20:54)
[2023-01-28] MEDS ORDERED: MELATONIN 3 MG TABLET PO SCH (21:00)
--- NOTE | 2023-01-28 22:12 | Behavioral Health Consult ---
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 hysterectomy Hx of fusion of cervical spine 2002 C5-C6 Hx of tonsillectomy 2014 S/P insertion of spinal cord stimulator [employer] Wavewriter implantable pulse generator with 4 Octad leads- lumbar spine S/P tendon repair 05/2013 Right foot tendon repair possibly due to Cipro or chemotherapy Family History Father Arthritis High blood pressure Bladder cancer Mother Arthritis Cervical cancer Diabetes High blood pressure Ovarian cancer Family/Other Dementia Paternal Uncle Family history of heart disease Uterine cancer Sibling Sister Migraine Blood disorder Daughter Increased heart rate Exertional increased heart rate Social History marital status: education level: college occupational status: retired and disabled other: Children-2 physical activity: none smoking status: Former smoker quit date: 10/27/95 pack-years: 5 smoking status stop date: 10/27/95 alcohol intake frequency: does not drink substance use type: does not use seatbelt use: always MEDS/ALLERGIES Home Medications and Allergies Home Medications Medication Instructions Recorded Confirmed Type L.acid-L.casei-B.bif-B.concetta-FOS 2 tab PO QAM 11/26/18 01/27/23 History [Probiotic Blend] alpha lipoic acid 600 mg capsule 1,200 mg PO QHS 11/26/18 01/27/23 History blood sugar diagnostic (True #10 ea 11/26/18 12/31/22 History Metrix Glucose Test Strip) cholecalciferol (vitamin D3) 125 5,000 unit PO DAILY 11/26/18 01/27/23 History mcg (5,000 unit) capsule latanoprost 0.005 % eye drops 1 drp ophthalmic (eye) QPM 11/26/18 01/27/23 History pen needle, diabetic [BD miscellaneous 11/26/18 12/31/22 History Ultra-Fine Mini Pen Needle] ASV and supplies #1 ea 06/30/19 12/31/22 Rx insulin lispro protamine-lispro See Rx Instructions subcut QDAY 11/23/19 01/27/23 History 100 unit/mL (75-25) subcutaneous pen (Humalog Mix 75-25 KwikPen) multivitamin 1 tab PO QAM 08/01/21 01/27/23 History folic acid 1 mg tablet 1 mg PO QDAY 11/01/21 01/27/23 History loratadine 10 mg tablet (Allergy 10 mg PO QDAY PRN Allergy Symptoms 11/01/21 01/27/23 History Relief (loratadine)) insulin glargine 100 unit/mL (3 80 unit subcut QHS 02/01/22 01/27/23 History mL) subcutaneous pen (Lantus Solostar U-100 Insulin) metformin 500 mg tablet,extended 500 mg PO QDAY 02/01/22 01/27/23 History release 24 hr urea 40 % topical cream 1 applic topical QDAY 06/19/22 01/27/23 History ascorbate calcium (vitamin C) 500 1,000 mg PO DAILY 08/13/22 01/27/23 History mg tablet duloxetine 30 mg capsule,delayed 90 mg PO QHS 08/13/22 01/27/23 History release nitroglycerin 0.4 mg sublingual 0.4 mg sublingual Q5M PRN Chest 08/13/22 01/27/23 History tablet Pain omeprazole 40 mg capsule,delayed 40 mg PO QDAY 08/13/22 01/27/23 History release timolol 0.5 % eye drops 1 drp ophthalmic (eye) QDAY 08/13/22 01/27/23 History semaglutide 0.25 mg or 0.5 mg (2 1 mg subcut WEEKLY 10/07/22 01/27/23 History mg/1.5 mL) subcutaneous pen injector (Ozempic) methadone 10 mg tablet 10 mg PO Q12H 11/14/22 01/27/23 History oxycodone 10 mg tablet 10 mg PO Q4-6HP PRN pain 11/14/22 01/27/23 History risperidone 1 mg tablet 1 mg PO QHS Mood #30 tabs 12/22/22 01/27/23 Rx 20 inch wheel chair #1 ea 01/23/23 Rx simvastatin 40 mg tablet 40 mg PO QHS #90 tabs 01/24/23 01/27/23 Rx losartan 25 mg tablet (Cozaar) 50 mg PO QHS 01/27/23 01/27/23 History pregabalin 150 mg capsule 150 mg PO BID 01/27/23 01/27/23 History Allergies Allergy/AdvReac Type Severity Reaction Status Date / Time nitrofurantoin Allergy Unknown Unknown Verified 01/27/23 10:14 ciprofloxacin [From Cipro] AdvReac Severe Snapped Verified 01/16/23 17:15 Tendon ofloxacin [From Floxin] AdvReac Severe snapped Verified 01/16/23 17:15 tendon hydrocodone AdvReac Mild Itching Verified 01/27/23 10:14 plastic tape AdvReac Mild blisters Uncoded 01/27/23 10:14 on skin Physical Examination Vital Signs Vital signs: Temp Pulse Resp BP Pulse Ox O2 Del Method O2 Flow Rate 98.9 F 80 16 144/86 100 Nasal Cannula 3.5 01/28/23 19:01 01/28/23 19:01 01/28/23 19:01 01/28/23 19:01 01/28/23 19:01 01/28/23 19:01 01/28/23 19:01 Results Laboratory Findings 01/27/23 05:41 01/28/23 05:51 Abnormal lab findings: Abnormal Labs 01/26/23 01/26/23 01/26/23 12:30 12:30 12:30 WBC 12.6 H Hgb MCHC RDW 15.6 H Lymph % (Auto) 11.8 L Lymph # (Auto) 1.49 L [place] # (Auto) 1.11 H Immature Gran # 0.06 H Absolute Neutrophils 9.67 H BUN 32 H Creatinine 1.5 H Glucose 155 H Phosphorus Magnesium AST ALT Lactate Dehydrogenase C-Reactive Protein 2.40 H Albumin Albumin/Globulin Ratio Triglycerides Urine Appearance Urine Protein Urine Ketones Ur Leukocyte Esterase Hyaline Casts Urine Mucus 01/26/23 01/27/23 01/27/23 12:46 05:41 05:41 WBC Hgb 11.0 L MCHC 30.9 L RDW 15.6 H Lymph % (Auto) Lymph # (Auto) 1.40 L [place] # (Auto) 1.04 H Immature Gran # Absolute Neutrophils BUN 24 H Creatinine Glucose 143 H Phosphorus Magnesium 1.5 L AST ALT Lactate Dehydrogenase C-Reactive Protein Albumin 3.1 L Albumin/Globulin Ratio Triglycerides 203 H Urine Appearance Hazy A Urine Protein 30 A Urine Ketones 5 A Ur Leukocyte Esterase 25 A Hyaline Casts 13 H Urine Mucus Few A 01/28/23 05:51 WBC Hgb MCHC RDW Lymph % (Auto) Lymph # (Auto) [place] # (Auto) Immature Gran # Absolute Neutrophils BUN Creatinine Glucose 165 H Phosphorus 1.5 L Magnesium AST 36 H ALT 46 H Lactate Dehydrogenase 237 H C-Reactive Protein Albumin Albumin/Globulin Ratio 0.9 L Triglycerides 208 H Urine Appearance Urine Protein Urine Ketones Ur Leukocyte Esterase Hyaline Casts Urine Mucus Microbiology: Microbiology 01/26/23 11:43 Blood Blood Culture - Preliminary 01/26/23 11:35 Blood Blood Culture - Preliminary 01/26/23 12:46 Urine - Catheterized Urine Culture - Final 01/26/23 19:41 Nasopharynx Respiratory Panel (PCR) - Final 01/26/23 19:41 Nasopharynx Respiratory Virus Panel (PCR) - Final 01/26/23 13:26 Nasopharynx Coronavirus COVID-19 PCR - Final A/P Time Spent With Patient Time: Total time spent is greater than 50% in coordination of care (as documented) at patient's floor/unit and/or counseling patient:
[2023-01-28] MEDS ORDERED: OLANZapine 10 MG VIAL IM PRN (23:19)
[2023-01-28] MEDS ORDERED: OLANZapine 10 MG VIAL IM ONE (23:40)
[2023-01-29] MEDS: 0.9 % SODIUM CHLORIDE 10 ML SYRINGE IV SCH ×3 (07:24→21:05)
[2023-01-29 07:26] LABS: ALT/SGPT 46 U/L (<40); AST/SGOT 33 U/L (<32); Albumin 3.5 gm/dL (3.2-5.2); Alkaline Phosphatase 76 U/L (39-117); Bilirubin,Direct < 0.2 mg/dL (0-0.3); Bilirubin,Total 0.6 mg/dL (0.1-1.0); Blood Urea Nitrogen 14 mg/dL (8-23); Calcium 9.8 mg/dL (8.6-10.4); Carbon Dioxide 26 mmol/L (22-30); Chloride 102 mmol/L (96-108); Globulin 3.5 gm/dL (2.2-3.7); Glomerular Filtration Rate 73; Glucose 176 mg/dL (70-105); Lactate Dehydrogenase 229 U/L (135-225); Phosphorous 1.5 mg/dL (2.5-4.5); Triglycerides 200 mg/dL (<150); Uric Acid 6.8 mg/dL (2.5-8.0)
[2023-01-29] MEDS ORDERED: POTASSIUM PHOSPHATE 40 MEQ in DEXTROSE 5% IN WATER 500 ML IV ONE (07:27)
--- NOTE | 2023-01-29 07:28 | Internal Med Progress Note ---
SUBJECTIVE Subjective Patient information: Note initiated : 01/29/23 at 7:26 am Service Date, if different from initiated Date: [] Patient: Trena Gaming a 72 y/o F admitted on 01/26/23 for Fever, increased oxygen, altered mental status. Chief Complaint: [] Interval history: History of present illness: Ms. Gaming is a 72 year old F Patient presents from her senior care for decreased level of consciousness and decreased oxygen saturations. She does have a history of chronic bronchitis as well as central sleep apnea and follows with pulmonology. She is on a 4 to 5 L of oxygen day and night. She has been in a senior care lately because her had a surgery recently - She has advanced Alzheimer's dementia. History is obtained from the family as patient is verbally unresponsive. The senior care center and because of decreased level of consciousness as well as hypoxia although I am not sure what level of oxygen support she was on, whether or not she was on her 4 L or less. As far as her baseline level of mentation patient has good days where she is animated and able to carry on a conversation with some assistance and other days where she is less. She ambulates with a walker. Per family she has had increasing cough lately. She was recently treated for UTI. Sounds like she had pneumonia back in September as well. Family says her Alzheimer's has been progressively worsening over the past year. In the ED she was found to have bilateral pneumonia and a mild leukocytosis. Minimally responsive. Chest x-ray with bilateral bibasilar infiltrates. Antibiotics and IV fluids started in the ED. 4/3 Little bit more alert today but still poor.. Responds "no" frequently to questions. Does not really follow commands. Makes eye contact. On 6 L OxyMask this morning weaning down to 3 now. Respiratory viral panel with rhinovirus. Leukocytosis improving. Renal function improving. Hypomagnesemia. 4/4 Patient became agitated and impulsive yesterday evening. Finally calm down. Refusing medications this morning. Patient on several liters of oxygen. Renal function improved. Phos low. 4/5 More alert and communicative today. Patient does answer yes to some questions. Follows commands. Feels better. Seen by telemetry psych yesterday. Review of Systems: Pertinent positives as above. Denies headache/fever/chills /nausea/vomiting/chest or abdominal pain/diarrhea. PHYSICAL EXAM General: awake, No acute Distress Eyes/N/T: EOMI, no scleral icterus, Head/Neck: neck supple, full ROM, CV: RRR, No murmurs, Pulm: Decreased BS b/l and mild bibase rhonchi/rales clear anteriorly, no wheezing, no respiratory distress Abd: soft, nontender, +BS x4 Ext: no clubbing/cyanosis/edema, nontender Neuro: more alert today, doesn't follow commands, makes eye contact, spontaneously moves extremities Psychiatric: Skin: warm/dry, normal color Constitutional Vitals: Vital Signs Temp Pulse Resp BP Pulse Ox O2 Del Method O2 Flow Rate 98.1 F 80 16 144/86 94 Room Air 3.5 01/28/23 23:29 01/28/23 19:01 01/29/23 04:00 01/28/23 19:01 01/29/23 04:00 01/29/23 04:00 01/28/23 19:01 Period Temp Pulse Resp BP Sys/Quiros Pulse Ox O2 Del Method O2 Flow Rate Last 24 Hr 97.4 F-98.9 F 80-99 14-18 144-155/86-92 94-100 Nasal Cannula- Room Air 2-3.5 Intake and Output 01/28/23 01/29/23 01/29/23 19:59 03:59 11:59 Intake Total 292 Output Total 1 1 Balance 292 -1 -1 Weight 103.419 kg Intake & Output: Intake & Output 01/28/23 01/29/23 01/29/23 19:59 03:59 11:59 Intake Total 292 Output Total 1 1 Balance 292 -1 -1 Weight 103.419 kg Intake: IV 52 Magnesium Sulfate 8.12 Meq In 52 Dextrose 5% in Water 50 ml @ 52 mls/hr IV ONCE ONE Rx#: [id number] Oral 240 Output: # of times incontinent of urine 1 1 Other: Meal Lunch Percent of Meal Consumed 100% Stool Size Moderate Smear Stool Color Brown Stool Consistency Loose # Voids 2 # Bowel Movements 1 OBJ DATA Labs 01/27/23 05:41 01/29/23 05:40 Labs: Abnormal Lab Results 01/28/23 01/27/23 01/27/23 05:51 05:41 05:41 WBC Hgb 11.0 L MCHC 30.9 L RDW 15.6 H Lymph % (Auto) Lymph # (Auto) 1.40 L [place] # (Auto) 1.04 H Immature Gran # Absolute Neutrophils BUN 24 H Creatinine Glucose 165 H 143 H Phosphorus 1.5 L Magnesium 1.5 L AST 36 H ALT 46 H Lactate Dehydrogenase 237 H C-Reactive Protein Albumin 3.1 L Albumin/Globulin Ratio 0.9 L Triglycerides 208 H 203 H Urine Appearance Urine Protein Urine Ketones Ur Leukocyte Esterase Hyaline Casts Urine Mucus 01/26/23 01/26/23 01/26/23 12:46 12:30 12:30 WBC Hgb MCHC RDW Lymph % (Auto) Lymph # (Auto) [place] # (Auto) Immature Gran # Absolute Neutrophils BUN 32 H Creatinine 1.5 H Glucose 155 H Phosphorus Magnesium AST ALT Lactate Dehydrogenase C-Reactive Protein 2.40 H Albumin Albumin/Globulin Ratio Triglycerides Urine Appearance Hazy A Urine Protein 30 A Urine Ketones 5 A Ur Leukocyte Esterase 25 A Hyaline Casts 13 H Urine Mucus Few A 01/26/23 12:30 WBC 12.6 H Hgb MCHC RDW 15.6 H Lymph % (Auto) 11.8 L Lymph # (Auto) 1.49 L [place] # (Auto) 1.11 H Immature Gran # 0.06 H Absolute Neutrophils 9.67 H BUN Creatinine Glucose Phosphorus Magnesium AST ALT Lactate Dehydrogenase C-Reactive Protein Albumin Albumin/Globulin Ratio Triglycerides Urine Appearance Urine Protein Urine Ketones Ur Leukocyte Esterase Hyaline Casts Urine Mucus Meds: Medications Acetaminophen (Acetaminophen 325 Mg Tablet) 650 mg PO Q6HP PRN; Protocol PRN Reason: Per Pain Protocol/Fever > 101 Albuterol/Ipratropium (Ipratropium/Albuterol 3 Ml Ampul.Neb) 3 ml NEB Q6HP PRN PRN Reason: Dyspnea Cefepime HCl (Cefepime 2 Gm Vial) 2 gm IV Q12H SARA; Protocol Last Admin: 01/28/23 20:42 Dose: 2 gm Dextrose (Dextrose 50% 50 Ml Vial) 0 ml IV UD PRN PRN Reason: Per Sliding Scale Diagnostic Test (Pha) (Accu-Chek 1 Each Strip) 1 each FS ACHS SARA Last Admin: 01/29/23 07:17 Dose: 1 each Docusate Sodium (Docusate Sodium 100 Mg Capsule) 100 mg PO BID SARA Last Admin: 01/28/23 20:37 Dose: Not Given Duloxetine HCl (Duloxetine 30 Mg Capsule) 90 mg PO QHS [facility] Last Admin: 01/28/23 20:53 Dose: Not Given Enoxaparin Sodium (Enoxaparin 40 Mg/0.4 Ml Syringe) 40 mg SQ DAILY [facility] Last Admin: 01/28/23 08:23 Dose: 40 mg Glucose (Dextrose 31 Gm Oral.Susp) 15 gm PO PRN PRN PRN Reason: Hypoglycemia Potassium Chloride 40 meq/ (Dextrose) 520 mls @ 130 mls/hr IV UD PRN PRN Reason: Potassium < 3 Magnesium Sulfate (Magnesium Sulfate) 2 gm in 50 mls @ 50 mls/hr IV UD PRN PRN Reason: Magnesium </= 1.6 Last Infusion: 01/27/23 14:37 Dose: Infused Insulin Glargine (Insulin Glargine, Human 1 Unit/0.01 Ml) 20 unit SQ [facility] Last Admin: 01/28/23 20:54 Dose: Not Given Insulin Human Lispro (Insulin Lispro 1 Unit/0.01 Ml Unit) 0 unit SQ [facility]; Protocol Last Admin: 01/28/23 20:54 Dose: Not Given Latanoprost (Latanoprost Ophth Drops 2.5ml Bottle) 1 gtt OU QPM [facility] Last Admin: 01/28/23 20:54 Dose: Not Given Melatonin (Melatonin 3 Mg Tablet) 6 mg PO QHS [facility] Last Admin: 01/28/23 20:54 Dose: Not Given Nitroglycerin (Nitroglycerin 0.4 Mg Tab.Subl) 0.4 mg SL Q5M PRN PRN Reason: Chest Pain Olanzapine (Olanzapine 5 Mg Tablet) 5 mg PO Q6HP PRN PRN Reason: Agitation Olanzapine (Olanzapine 10 Mg Vial) 5 mg IM ONCE PRN PRN Reason: Agitation Last Admin: 01/28/23 23:43 Dose: 5 mg Omeprazole (Omeprazole 20 Mg Capsule) 40 mg PO ACB [facility] Last Admin: 01/28/23 12:10 Dose: Not Given Ondansetron HCl (Ondansetron 4 Mg/2 Ml Vial) 4 mg IV Q4HP PRN PRN Reason: Nausea And Vomiting Polyethylene Glycol (Polyethylene Glycol 3350 17 Gm Packet) 17 gm PO DAILYP PRN PRN Reason: Constipation Potassium Chloride (Potassium Chloride 20 Meq Tablet) 40 meq PO UD PRN PRN Reason: Potssium is 3-3.5 Potassium Chloride (Potassium Chloride 20 Meq Tablet) 40 meq PO UD PRN PRN Reason: Potassium < 3 Pregabalin (Pregabalin 150 Mg Capsule) 150 mg PO BID [facility] Last Admin: 01/28/23 20:54 Dose: Not Given Quetiapine Fumarate (Quetiapine 25 Mg Tablet) 25 mg PO HS [facility] Last Admin: 01/28/23 20:54 Dose: Not Given Risperidone (Risperidone 1 Mg Tablet) 1 mg PO QHS [facility] Last Admin: 01/28/23 20:54 Dose: Not Given Senna (Sennosides 1 Tablet) 2 tab PO DAILYP PRN PRN Reason: Constipation Simvastatin (Simvastatin 40 Mg Tablet) 40 mg PO QHS [facility] Last Admin: 01/28/23 20:54 Dose: Not Given Sodium Chloride (0.9 % Sodium Chloride 10 Ml Syringe) 10 ml IV Q8 [facility] Last Admin: 01/29/23 07:24 Dose: 10 ml Timolol Maleate (Timolol 0.5% Ophth Drops Bottle 5ml) 1 gtt OU QDAY [facility] Last Admin: 01/28/23 12:11 Dose: Not Given A/P Narrative A/P Narrative: A: *PNA, b/l: concern for aspiration -RVP positive for rhinovirus. flu/covid/strep neg *Sepsis: 2/2 above -leukocytosis improved *Acute on chornic hypoxic respiratory failure: -now on room air *Encephalopathy, acute on chronic: 2/2 above, mildly improved *Advanced Alzheimer's Dementia with Behaviours: *Hypomagnesemia/hypophosphatemia: *COPD(on 4-5L@home) *Central Sleep Apnea: cpap *SYDNEE on CKD IIIb: improved *DM2: *HTN/HLD: *Chronic pain: *Obesity: BMI 37 *GERD: *Generalized weakness/deconditioning: P: -Cefepime/azithromycin, pending BC/SC -IS/Acapella/home cpt vest, RT, nebs, cont home IH's -wean o2 as able -home cpap -[facility] -telepsych consulted with rec > d/c risperdal, cont zyprexa 5mg tid prn, cont melatonin -Monitor electrolytes and replace. -f/u renal fxn, monitor uop & i/o -hold ARB for sydnee -basal(decreased for poor po intake) and ssi -PT/OT -CM for placement -ppx: lovenox / home ppi Time Spent With Patient Time: Total time spent is greater than 50% in coordination of care (as documented) at patient's floor/unit and/or counseling patient: Subsequent: Total time with patient: 50 - 65 Minutes QUALITY Stroke Symptom Onset Unknown: No VTE Deep Vein Thrombosis/Pulmonary Embolism Present on Admission: No
[2023-01-29] MEDS: INSULIN LISPRO 1 UNIT/0.01 ML UNIT SQ SCH ×4 (08:00→21:05)
[2023-01-29] MEDS: OMEPRAZOLE 20 MG CAPSULE PO SCH (08:04)
[2023-01-29] MEDS ORDERED: OLANZapine 5 MG TABLET PO PRN (09:05)
[2023-01-29] MEDS: DOCUSATE SODIUM 100 MG CAPSULE PO SCH ×2 (09:21→21:07)
[2023-01-29] MEDS: ENOXAPARIN 40 MG/0.4 ML SYRINGE SQ SCH (09:50)
[2023-01-29] MEDS: PREGABALIN 150 MG CAPSULE PO SCH ×2 (09:50→21:07)
[2023-01-29] MEDS: CEFEPIME 2 GM VIAL IV SCH ×2 (09:52→21:05)
[2023-01-29] MEDS: TIMOLOL 0.5% OPHTH DROPS BOTTLE 5ML OU SCH (10:25)
[2023-01-29] MEDS ORDERED: oxyCODONE HCL 5 MG TABLET PO PRN (12:13)
[2023-01-29] MEDS: guaiFENesin 600 MG TAB.SR.12H PO SCH ×2 (13:03→22:49)
[2023-01-29] MEDS ORDERED: MELATONIN 3 MG TABLET PO SCH ×2 (16:30→17:30)
[2023-01-29] MEDS: METHADONE 5 MG TABLET PO SCH ×2 (17:05→21:07)
[2023-01-29] MEDS: SIMVASTATIN 40 MG TABLET PO SCH (21:07)
[2023-01-29] MEDS: DULoxetine 30 MG CAPSULE PO SCH (21:07)
[2023-01-29] MEDS: QUEtiapine 25 MG TABLET PO SCH (21:07)
[2023-01-29] MEDS: LATANOPROST OPHTH DROPS 2.5ML BOTTLE OU SCH (21:07)
[2023-01-29] MEDS: INSULIN GLARGINE, HUMAN 1 UNIT/0.01 ML SQ SCH (21:08)
[2023-01-30] MEDS: 0.9 % SODIUM CHLORIDE 10 ML SYRINGE IV SCH (07:42)
--- NOTE | 2023-01-30 07:45 | Internal Med Progress Note ---
SUBJECTIVE Subjective Patient information: Note initiated : 01/30/23 at 7:41 am Service Date, if different from initiated Date: [] Patient: Trena Gaming a 72 y/o F admitted on 01/26/23 for Fever, increased oxygen, altered mental status. Chief Complaint: [] Interval history: History of present illness: Ms. Gaming is a 72 year old F Patient presents from her care home for decreased level of consciousness and decreased oxygen saturations. She does have a history of chronic bronchitis as well as central sleep apnea and follows with pulmonology. She is on a 4 to 5 L of oxygen day and night. She has been in a care home lately because her had a surgery recently - She has advanced Alzheimer's dementia. History is obtained from the family as patient is verbally unresponsive. The care home center and because of decreased level of consciousness as well as hypoxia although I am not sure what level of oxygen support she was on, whether or not she was on her 4 L or less. As far as her baseline level of mentation patient has good days where she is animated and able to carry on a conversation with some assistance and other days where she is less. She ambulates with a walker. Per family she has had increasing cough lately. She was recently treated for UTI. Sounds like she had pneumonia back in September as well. Family says her Alzheimer's has been progressively worsening over the past year. In the ED she was found to have bilateral pneumonia and a mild leukocytosis. Minimally responsive. Chest x-ray with bilateral bibasilar infiltrates. Antibiotics and IV fluids started in the ED. 4/3 Little bit more alert today but still poor.. Responds "no" frequently to questions. Does not really follow commands. Makes eye contact. On 6 L OxyMask this morning weaning down to 3 now. Respiratory viral panel with rhinovirus. Leukocytosis improving. Renal function improving. Hypomagnesemia. 4/4 Patient became agitated and impulsive yesterday evening. Finally calm down. Refusing medications this morning. Patient on several liters of oxygen. Renal function improved. Phos low. 4/5 More alert and communicative today. Patient does answer yes to some questions. Follows commands. Feels better. Seen by telemetry psych yesterday. 4/6 Seems to be continued to feel a bit better today. Answer questions approp riately. Did well last night. Calm and cooperative. Seen by speech therapy did well no diet modifications needed. Review of Systems: Pertinent positives as above. Denies headache/fever/chills/naus ea/vomiting/chest or abdominal pain/diarrhea. PHYSICAL EXAM General: awake, No acute Distress Eyes/N/T: EOMI, no scleral icterus, Head/Neck: neck supple, full ROM, CV: RRR, No murmurs, Pulm: Decreased BS b/l and mild bibase rhonchi/rales clear anteriorly, no wheezing, no respiratory distress Abd: soft, nontender, +BS x4 Ext: no clubbing/cyanosis/edema, nontender Neuro: alert today, does follow commands, makes eye contact, spontaneously moves extremities Psychiatric: Skin: warm/dry, normal color Constitutional Vitals: Vital Signs Temp Pulse Resp BP Pulse Ox O2 Del Method O2 Flow Rate 97.6 F 83 24 H 147/74 95 Nasal Cannula 4 01/30/23 03:30 01/30/23 04:00 01/30/23 04:00 01/30/23 03:30 01/30/23 04:00 01/30/23 04:00 01/30/23 04:00 Period Temp Pulse Resp BP Sys/Quiros Pulse Ox O2 Del Method O2 Flow Rate Last 24 Hr 97.3 F-98.4 F 67-84 16-24 137-160/74-95 95-100 CPAP-Room Air 3-4 Intake and Output 01/29/23 01/30/23 01/30/23 19:59 03:59 11:59 Intake Total 509.0909 440 Output Total 1 1 Balance 508.0909 439 Weight 99.926 kg Intake & Output: Intake & Output 01/29/23 01/30/23 01/30/23 19:59 03:59 11:59 Intake Total 509.0909 440 Output Total 1 1 Balance 508.0909 439 Weight 99.926 kg Intake: IV 509.0909 Potassium Phosphate 40 Meq In 509.0909 Dextrose 5% in Water 500 ml @ 127.273 mls/hr IV ONCE ONE Rx#: [id number] Oral 440 Output: # of times incontinent of urine 1 1 Other: Urine Color Yellow Urine Odor Strong # Voids 1 # Unmeasured Emesis 1 OBJ DATA Labs 01/27/23 05:41 04/05/23 05:40 Labs: Abnormal Lab Results 01/29/23 01/28/23 01/27/23 05:40 05:51 05:41 BUN 24 H Glucose 176 H 165 H 143 H Phosphorus 1.5 L 1.5 L Magnesium 1.5 L AST 33 H 36 H ALT 46 H 46 H Lactate Dehydrogenase 229 H 237 H Albumin 3.1 L Albumin/Globulin Ratio 0.9 L Triglycerides 200 H 208 H 203 H Meds: Medications Acetaminophen (Acetaminophen 325 Mg Tablet) 650 mg PO Q6HP PRN; Protocol PRN Reason: Per Pain Protocol/Fever > 101 Last Admin: 01/29/23 09:50 Dose: 650 mg Albuterol/Ipratropium (Ipratropium/Albuterol 3 Ml Ampul.Neb) 3 ml NEB Q6HP PRN PRN Reason: Dyspnea Cefepime HCl (Cefepime 2 Gm Vial) 2 gm IV Q12H [facility]; Protocol Last Admin: 01/29/23 21:05 Dose: 2 gm Dextrose (Dextrose 50% 50 Ml Vial) 0 ml IV UD PRN PRN Reason: Per Sliding Scale Diagnostic Test (Pha) (Accu-Chek 1 Each Strip) 1 each FS ACHS [facility] Last Admin: 01/30/23 07:39 Dose: 1 each Docusate Sodium (Docusate Sodium 100 Mg Capsule) 100 mg PO BID [facility] Last Admin: 01/29/23 21:07 Dose: 100 mg Duloxetine HCl (Duloxetine 30 Mg Capsule) 90 mg PO QHS [facility] Last Admin: 01/29/23 21:07 Dose: 90 mg Enoxaparin Sodium (Enoxaparin 40 Mg/0.4 Ml Syringe) 40 mg SQ DAILY [facility] Last Admin: 01/29/23 09:50 Dose: 40 mg Glucose (Dextrose 31 Gm Oral.Susp) 15 gm PO PRN PRN PRN Reason: Hypoglycemia Guaifenesin (Guaifenesin 600 Mg Tab.Sr.12h) 1,200 mg PO BID [facility] Last Admin: 01/29/23 22:49 Dose: Not Given Potassium Chloride 40 meq/ (Dextrose) 520 mls @ 130 mls/hr IV UD PRN PRN Reason: Potassium < 3 Magnesium Sulfate (Magnesium Sulfate) 2 gm in 50 mls @ 50 mls/hr IV UD PRN PRN Reason: Magnesium </= 1.6 Last Infusion: 01/27/23 14:37 Dose: Infused Insulin Glargine (Insulin Glargine, Human 1 Unit/0.01 Ml) [address] [facility] Last Admin: 01/29/23 21:08 Dose: Not Given Insulin Human Lispro (Insulin Lispro 1 Unit/0.01 Ml Unit) 0 unit SQ [facility]; Protocol Last Admin: 01/29/23 21:05 Dose: Not Given Latanoprost (Latanoprost Ophth Drops 2.5ml Bottle) 1 gtt OU QPM [facility] Last Admin: 01/29/23 21:07 Dose: Not Given Melatonin (Melatonin 3 Mg Tablet) 6 mg PO DAILY@1630 [facility] Last Admin: 01/29/23 20:17 Dose: Not Given Methadone HCl (Methadone 5 Mg Tablet) 10 mg PO TID [facility] Last Admin: 01/29/23 21:07 Dose: 10 mg Nitroglycerin (Nitroglycerin 0.4 Mg Tab.Subl) 0.4 mg SL Q5M PRN PRN Reason: Chest Pain Olanzapine (Olanzapine 5 Mg Tablet) 5 mg PO TIDP PRN PRN Reason: Agitation Omeprazole (Omeprazole 20 Mg Capsule) 40 mg PO ACB [facility] Last Admin: 01/29/23 08:04 Dose: 40 mg Ondansetron HCl (Ondansetron 4 Mg/2 Ml Vial) 4 mg IV Q4HP PRN PRN Reason: Nausea And Vomiting Last Admin: 01/29/23 12:15 Dose: 4 mg Oxycodone HCl (Oxycodone Hcl 5 Mg Tablet) 10 mg PO Q4-6HP PRN; Protocol PRN Reason: Pain Polyethylene Glycol (Polyethylene Glycol 3350 17 Gm Packet) 17 gm PO DAILYP PRN PRN Reason: Constipation Potassium Chloride (Potassium Chloride 20 Meq Tablet) 40 meq PO UD PRN PRN Reason: Potssium is 3-3.5 Potassium Chloride (Potassium Chloride 20 Meq Tablet) 40 meq PO UD PRN PRN Reason: Potassium < 3 Pregabalin (Pregabalin 150 Mg Capsule) 150 mg PO BID [facility] Last Admin: 01/29/23 21:07 Dose: 150 mg Quetiapine Fumarate (Quetiapine 25 Mg Tablet) [address] [facility] Last Admin: 01/29/23 21:07 Dose: 25 mg Senna (Sennosides 1 Tablet) 2 tab PO DAILYP PRN PRN Reason: Constipation Simvastatin (Simvastatin 40 Mg Tablet) 40 mg PO QHS [facility] Last Admin: 01/29/23 21:07 Dose: 40 mg Sodium Chloride (0.9 % Sodium Chloride 10 Ml Syringe) 10 ml IV Q8 [facility] Last Admin: 01/29/23 21:05 Dose: 10 ml Timolol Maleate (Timolol 0.5% Ophth Drops Bottle 5ml) 1 gtt OU QDAY [facility] Last Admin: 01/29/23 10:25 Dose: Not Given A/P Narrative A/P Narrative: A: *PNA, b/l: concern for aspiration -RVP positive for rhinovirus. flu/covid/strep neg *Sepsis: 2/2 above -leukocytosis improved *Acute on chornic hypoxic respiratory failure: -now on room air *Encephalopathy, acute on chronic: 2/2 above, greatly improved *Advanced Alzheimer's Dementia with Behaviours: *Hypomagnesemia/hypophosphatemia: *COPD(on 4-5L@home) *Central Sleep Apnea: cpap *SYDNEE on CKD IIIb: improved *DM2: *HTN/HLD: *Chronic pain: on methadone and prn oxy *Obesity: BMI 37 *GERD: *Generalized weakness/deconditioning: P: -Cefepime/azithromycin, pending BC/SC -IS/Acapella/home cpt vest, RT, nebs, cont home IH's -wean o2 as able -home cpap -[facility] did well -telepsych consulted with rec > d/c risperdal, cont zyprexa 5mg tid prn, cont melatonin -Monitor electrolytes and replace. -f/u renal fxn, monitor uop & i/o -hold ARB for sydnee -basal(decreased for poor po intake initially, start to increase) and ssi -PT/OT -CM for placement -ppx: lovenox / home ppi Time Spent With Patient Time: Total time spent is greater than 50% in coordination of care (as documented) at patient's floor/unit and/or counseling patient: QUALITY Stroke Symptom Onset Unknown: No VTE Deep Vein Thrombosis/Pulmonary Embolism Present on Admission: No
[2023-01-30] MEDS: INSULIN LISPRO 1 UNIT/0.01 ML UNIT SQ SCH (07:53)
[2023-01-30] MEDS: OMEPRAZOLE 20 MG CAPSULE PO SCH (07:53)
[2023-01-30] MEDS: PREGABALIN 150 MG CAPSULE PO SCH (08:59)
[2023-01-30] MEDS: METHADONE 5 MG TABLET PO SCH (08:59)
[2023-01-30] MEDS: guaiFENesin 600 MG TAB.SR.12H PO SCH (08:59)
[2023-01-30] MEDS: ENOXAPARIN 40 MG/0.4 ML SYRINGE SQ SCH (09:00)
[2023-01-30] MEDS: DOCUSATE SODIUM 100 MG CAPSULE PO SCH (09:00)
[2023-01-30] MEDS: TIMOLOL 0.5% OPHTH DROPS BOTTLE 5ML OU SCH (09:12)
[2023-01-30] MEDS: CEFEPIME 2 GM VIAL IV SCH (09:12)
== END 2023-01-30 11:10 | DRG 871 ==
LOC: ED 11:32 → MEDSUR 16:59
PROVIDERS: ADMIT Internal Medicine; ATTEND Internal Medicine